=== PATIENT | male | born 1990 | race Caucasian/White ===

== ENCOUNTER 2023-04-13 03:49 | Observation (INO) ==
[2023-04-13 04:09] LABS: ABS Basophils 0.1 10^3/uL (0.0-0.1); ABS Eosinophils 0.1 10^3/uL (0.0-0.5); ABS Lymphocytes 1.7 10^3/uL (1.0-4.8); ABS Monocytes 0.5 10^3/uL (0.0-1.1); ABS Neutrophils 2.8 10^3/uL (1.5-7.6); ABS Nucleated RBC 0.01 10^3/ul; Eosinophil % 1.2 %; Hemoglobin 15.9 g/dL (13.2-16.3); Lymphocyte % 32.2 %; Mean Corpuscular Hemoglobin 34.2 pg (27-33); Mean Corpuscular Hgb Conc 34.7 g/dL (31-36); Mean Corpuscular Volume 98.8 fL (80-97); Mean Platelet Volume 6.9 fL (7.5-11.2); Nucleated Red Blood Cells % 0.2 %/100WBC (0.0-0.8); Platelet Count 250 10^3/uL (150-450); Red Blood Count 4.65 10^6/uL (4.06-5.63); Red Cell Distribution Width 13.8 % (12-17); White Blood Count 5.3 10^3/uL (3.6-10.2)
[2023-04-13] MEDS ORDERED: Adenosine 3 MG/ML 2 ml VIAL (6 mg) IV PUSH ONE ×2 (04:14→04:23)
[2023-04-13 04:33] LABS: INR 0.94 (0.83-1.13)
[2023-04-13 04:37] LABS: Albumin 3.9 g/dL (3.2-5.2); Albumin/Globulin Ratio 1.2 (1-3); Calcium 8.7 mg/dL (8.6-10.3); Creatinine, Serum 1.02 mg/dL (0.67-1.17); Globulin 3.2 g/dL (2-4); Potassium 3.7 mmol/L (3.5-5.0); Total Bilirubin 0.4 mg/dL (0.2-1.0); Total Protein 7.1 g/dL (6.4-8.9); eGFR CKD-EPI 99.5 (>60)
[2023-04-13] MEDS ORDERED: Digoxin IV 0.5 MG/2 ML AMP (0.25 MG/ML) IV SLOW PU ONE (04:48)
[2023-04-13] MEDS ORDERED: Metoprolol Tartrate 5 mg VIAL 5 ml VIAL (1 mg/ml) ONE (05:07)
[2023-04-13] MEDS ORDERED: Metoprolol Tartrate 5 mg VIAL 5 ml VIAL (1 mg/ml) IV ONE ×3 (05:15→06:04)
[2023-04-13] MEDS ORDERED: Senna TAB 8.6 mg TAB PO PRN (05:22)
[2023-04-13] MEDS ORDERED: Polyethylene Glycol 3350 17 GM PACKET PO PRN (05:22)
[2023-04-13] MEDS ORDERED: Ondansetron 4 mg VIAL 2 MG/ML 2 ml VIAL IV PRN (05:22)
[2023-04-13] MEDS ORDERED: Metoprolol Tartrate 5 mg VIAL 5 ml VIAL (1 mg/ml) IV PRN ×2 (05:47→17:58)
[2023-04-13 05:49] LABS: Magnesium 1.9 mg/dL (1.9-2.7)
[2023-04-13 06:06] LABS: TSH Ultra Thyroid Stim Horm 2.65 mcIU/mL (0.34-5.60)
[2023-04-13] MEDS ORDERED: Furosemide 40 mg/4 ml IV VIAL IV SLOW PU ONE (06:14)
[2023-04-13 06:17] LABS: Folate 5.74 ng/mL (5.90-24.80)
[2023-04-13] MEDS ORDERED: Iodixanol (CONTRAST) 320 MG/ML 100 ML SDV IV ONE (06:25)
[2023-04-13] MEDS ORDERED: Nicotine GUM 4MG FRUIT FLAVOR PO PRN (06:33)
[2023-04-13] MEDS ORDERED: Heparin 5000 UNITS/ML 1 mL VIAL IV SCH (07:00)
[2023-04-13] MEDS: Heparin DRIP 25,000 UNITS BAG 25,000 UNITS/250 ML BAG IV SCH ×2 (07:57→21:27)
[2023-04-13] MEDS ORDERED: Sulfur Hexaflouride MICROSPHR 25 MG VIAL ONE (08:03)
[2023-04-13 08:06] LABS: Creatinine, Serum 0.96 mg/dL (0.67-1.17)
[2023-04-13] MEDS ORDERED: Enoxaparin 40 MG/0.4 ML SYR SUBCUT SCH (09:00)
[2023-04-13 09:03] LABS: ABS Basophils 0.1 10^3/uL (0.0-0.1); ABS Monocytes 0.5 10^3/uL (0.0-1.1); ABS Nucleated RBC 0.01 10^3/ul; Eosinophil % 0.7 %; Hematocrit 44.5 % (38-53); Hemoglobin 15.2 g/dL (13.2-16.3); Lymphocyte % 17.9 %; Mean Corpuscular Hgb Conc 34.2 g/dL (31-36); Mean Corpuscular Volume 99.4 fL (80-97); Mean Platelet Volume 7.4 fL (7.5-11.2); Nucleated Red Blood Cells % 0.1 %/100WBC (0.0-0.8); Platelet Count 232 10^3/uL (150-450); Red Blood Count 4.48 10^6/uL (4.06-5.63); Red Cell Distribution Width 13.9 % (12-17); White Blood Count 5.6 10^3/uL (3.6-10.2)
[2023-04-13] MEDS: Nicotine PATCH 21 MG/24 HR PATCH TRANSDERM SCH (09:20)
[2023-04-13 10:31] LABS: Urine Benzodiazepine Screen None Detected (None Detect); Urine Cannabinoids Screen Presumptive Positive (None Detect); Urine Opiates Screen None Detected (None Detect)
[2023-04-13 11:42] LABS: High Sensitivity Troponin 1 Hr 291 pg/mL (<20)
[2023-04-13] MEDS: Furosemide 40 mg/4 ml IV VIAL IV SLOW PU SCH (17:16)
[2023-04-13] MEDS ORDERED: LORazepam 2 mg VIAL 1 ml IV PUSH PRN (17:58)
[2023-04-13] MEDS ORDERED: Lorazepam PYXIS KEY PRN (17:58)
[2023-04-13] MEDS ORDERED: Nicotine Lozenge mini 2 MG LOZNG.MINI MT PRN (18:13)
[2023-04-14 06:31] LABS: ABS Lymphocytes 1.1 10^3/uL (1.0-4.8); ABS Monocytes 0.8 10^3/uL (0.0-1.1); ABS Neutrophils 3.4 10^3/uL (1.5-7.6); Eosinophil % 0.4 %; Hematocrit 44.9 % (38-53); Hemoglobin 15.5 g/dL (13.2-16.3); Lymphocyte % 20.3 %; Mean Corpuscular Hemoglobin 33.8 pg (27-33); Mean Corpuscular Hgb Conc 34.5 g/dL (31-36); Mean Platelet Volume 7.2 fL (7.5-11.2); Nucleated Red Blood Cells % 0.1 %/100WBC (0.0-0.8); Platelet Count 203 10^3/uL (150-450); Red Blood Count 4.58 10^6/uL (4.06-5.63); Red Cell Distribution Width 13.6 % (12-17); White Blood Count 5.3 10^3/uL (3.6-10.2)
[2023-04-14 07:31] LABS: Anion Gap 12 mmol/L (2-16); Blood Urea Nitrogen 13 mg/dL (6-24); CO2 Carbon Dioxide 23 mmol/L (22-32); Calcium 8.7 mg/dL (8.6-10.3); Chloride 95 mmol/L (101-111); Creatinine, Serum 0.99 mg/dL (0.67-1.17); Glucose 100 mg/dL (70-100); Magnesium 1.8 mg/dL (1.9-2.7); Sodium 130 mmol/L (135-145); eGFR CKD-EPI 103.2 (>60)
[2023-04-14] MEDS: Potassium Chlor 20 meq TAB.ER PO SCH (09:02)
[2023-04-14] MEDS: Furosemide 40 mg/4 ml IV VIAL IV SLOW PU SCH (09:02)
[2023-04-14] MEDS: Nicotine PATCH 21 MG/24 HR PATCH TRANSDERM SCH (09:02)
[2023-04-14] MEDS ORDERED: Magnesium Sulfate 2 gm BAG 2 GM/50 ML BAG IVPB ONE (10:02)
[2023-04-14] MEDS: Heparin DRIP 25,000 UNITS BAG 25,000 UNITS/250 ML BAG IV SCH (10:29)
[2023-04-15] MEDS: Heparin DRIP 25,000 UNITS BAG 25,000 UNITS/250 ML BAG IV SCH (00:50)
[2023-04-15 05:50] LABS: ABS Basophils 0.1 10^3/uL (0.0-0.1); ABS Eosinophils 0.2 10^3/uL (0.0-0.5); ABS Lymphocytes 2.1 10^3/uL (1.0-4.8); ABS Monocytes 0.7 10^3/uL (0.0-1.1); ABS Neutrophils 1.9 10^3/uL (1.5-7.6); ABS Nucleated RBC 0.02 10^3/ul; Eosinophil % 3.7 %; Hematocrit 48.9 % (38-53); Lymphocyte % 41.4 %; Mean Corpuscular Hemoglobin 34.1 pg (27-33); Mean Corpuscular Hgb Conc 34.9 g/dL (31-36); Mean Corpuscular Volume 97.6 fL (80-97); Mean Platelet Volume 7.3 fL (7.5-11.2); Nucleated Red Blood Cells % 0.5 %/100WBC (0.0-0.8); Platelet Count 210 10^3/uL (150-450); Red Cell Distribution Width 13.6 % (12-17)
[2023-04-15 06:09] LABS: Activated Partial Thrombo Time 63.3 seconds (26.0-38.0); INR 0.96 (0.83-1.13)
[2023-04-15 06:17] LABS: Creatinine, Serum 0.95 mg/dL (0.67-1.17); Magnesium 2.4 mg/dL (1.9-2.7); Potassium 3.2 mmol/L (3.5-5.0); eGFR CKD-EPI 108.4 (>60)
[2023-04-15] MEDS: Nicotine PATCH 21 MG/24 HR PATCH TRANSDERM SCH (08:22)
[2023-04-15] MEDS: Potassium Chlor 20 meq TAB.ER PO SCH (08:27)
[2023-04-15] MEDS ORDERED: Multivitamins/Minerals TAB PO SCH (09:00)
[2023-04-15] MEDS ORDERED: Potassium Chlor 20 meq TAB.ER PO ONE ×2 (09:00→10:49)
[2023-04-15 11:36] VITALS: BP 93/61
[2023-04-15] MEDS ORDERED: Warfarin DAILY REMINDER **NOTE FOLLOW UP SCH (17:00)
== END 2023-04-15 14:00 | disposition left against medical advice (07) | DRG 292 ==
LOC: ED 03:49 → EDHOLD 03:49 → INTOOBSV 05:22 → SUATTDRO 05:22 → EDHOLD 08:30 → ICU 12:42 → MEDTELE 04-15 02:40
PROVIDERS: ADMIT Internal Medicine; ATTEND Hospitalist